=== PATIENT | male | born 1980 | race Caucasian/White ===

== ENCOUNTER 2024-03-05 15:27 | Emergency (ER) | payer BC, SELFPAY ==
[2024-03-05] VITALS (22 sets, daily range): BP systolic 132–156; BP diastolic 79–95; PULSE 68–92; RESP 16–20; TEMP 36.1; O2SAT 91–97; BMI 29.2
--- NOTE | 2024-03-05 16:04 | ED_ITS ---
HPI - Alcohol General Time Seen by Provider: 16:04 Date Seen: 03/05/24 Chief Complaint: Alcohol/Intoxication Stated Complaint: Severe tremors Time Seen by Provider: 03/05/24 16:04 Source: patient and RN notes reviewed Mode of arrival: ambulatory Limitations: no limitations History of Present Illness HPI narrative: Solis is a very pleasant 43-year-old gentleman who notes heavy drinking over the last 10 years who comes to the emergency room with tremors and seeking help. Patient originally went to the clinic and this was sent to the ER. He notes the onset of tremors today and really denies tremors in his past. He states that he was so tremulous he could not lift a piece of paper this morning. He has been drinking heavily daily. He describes his day is having a beer on the way to work, 2 beers at lunch and then drinking heavily after work until about 2200 hours. He is usually drinking vodka in the evening hours. He notes that in the past if he would stop drinking he would feel like he had a hangover for a few days. He notes that he really wants to get better and seems to be receptive to treatment. He states that he told the triage nurse that he does not think outpatient will work for him. He states that he has really good benefits to the [employer] with his but he has never used them. He tells me that he wants to only get better and does not want for his on healthy living to catch up with him. Solis notes occasional alcohol use when he is drinking heavily. He has off used cocaine occasionally in the past year but none recently. He denies any chest pain when he used in the past. He has not been vomiting nor has he nauseated. He has not had any abdominal pain. Notes that he did have some diarrhea early this morning. Patient denies fever chills, respiratory symptoms. Related Data Home Medications Medication Instructions Recorded Confirmed No Known Home Medications 09/01/22 03/05/24 Allergies Allergy/AdvReac Type Severity Reaction Status Date / Time No Known Drug Allergies Allergy Verified 09/01/22 12:50 Review of Systems Status of ROS Reports: 10 or more systems reviewed and unremarkable except as noted in History and below Const Denies: fever, chills or fatigue Eyes Denies: change in vision ENMT Denies: throat pain, neck pain, throat swelling or difficulty swallowing Cardio Denies: chest pain, palpitations, swelling of feet/ankles, lightheadedness or shortness of breath with exertion Resp Denies: shortness of breath, cough or wheezing GI Denies: abdominal pain, nausea, vomiting or difficulty swallowing Musculo Denies: neck pain Integ/Breast Denies: rash Neuro Denies: headache Endo Denies: fatigue Allergy/Immuno Denies: throat swelling or wheezing [facility] Social History Smoking Status: Current some day smoker How often do you have a drink containing alcohol: 4 or more times a week How many standard drinks containing alcohol do you have on a typical day: 7 to 9 How often do you have six or more drinks on one occasion: Daily or almost daily AUDIT-C Alcohol total score: 11 Non-prescribed substance use: former substance user and crack/cocaine Little interest or pleasure in doing things: several days Feeling down, depressed, or hopeless: not at all Exam Narrative: Exam Narrative: Patient is alert and oriented. He is tremulous over most of his body. Definitely in upper extremities. Even in his talking he has some tremulous of his jaw. He makes good eye contact. No scleral icterus. Face symmetrical. Heart with regular rate and rhythm and lungs are clear bilaterally. Abdomen is soft and nontender. Lower extremities without edema. He can move all of his extremities. Tremors increased with intention. Const: Vital Signs, click to edit/add: Vital Signs - 24 hr 03/05/24 15:32 03/05/24 16:55 03/05/24 16:56 Temperature 97 F L Pulse Rate 81 78 Pulse Rate [Pulse Oximeter] 92 Respiratory Rate 20 Blood Pressure 140/95 H Blood Pressure [Ri ght Upper Arm] 156/79 H Pulse Oximetry 95 93 96 Oxygen Delivery Me thod Room Air 03/05/24 17:00 03/05/24 17:01 03/05/24 17:15 Temperature Pulse Rate 71 72 78 Pulse Rate [Pulse Oximeter] Respiratory Rate Blood Pressure 145/87 H Blood Pressure [Ri ght Upper Arm] Pulse Oximetry 95 95 97 Oxygen Delivery Me thod 03/05/24 17:30 03/05/24 17:32 03/05/24 17:45 Temperature Pulse Rate 73 89 68 Pulse Rate [Pulse Oximeter] Respiratory Rate Blood Pressure 141/95 H Blood Pressure [Ri ght Upper Arm] Pulse Oximetry 96 97 91 Oxygen Delivery Me thod 03/05/24 18:00 03/05/24 18:02 03/05/24 18:03 Temperature Pulse Rate 82 73 71 Pulse Rate [Pulse Oximeter] Respiratory Rate Blood Pressure 146/91 H Blood Pressure [Ri ght Upper Arm] Pulse Oximetry 96 94 95 Oxygen Delivery Me thod 03/05/24 18:15 03/05/24 18:30 03/05/24 18:31 Temperature Pulse Rate 89 68 69 Pulse Rate [Pulse Oximeter] Respiratory Rate Blood Pressure 146/86 H Blood Pressure [Ri ght Upper Arm] Pulse Oximetry 96 95 95 Oxygen Delivery Me thod 03/05/24 18:45 03/05/24 19:00 03/05/24 19:02 Temperature Pulse Rate 73 71 68 Pulse Rate [Pulse Oximeter] Respiratory Rate Blood Pressure 144/86 H Blood Pressure [Ri ght Upper Arm] Pulse Oximetry 95 93 93 Oxygen Delivery Me thod 03/05/24 19:03 03/05/24 19:15 Temperature Pulse Rate 68 68 Pulse Rate [Pulse Oximeter] Respiratory Rate Blood Pressure Blood Pressure [Ri ght Upper Arm] Pulse Oximetry 92 95 Oxygen Delivery Me thod Documenting provider has reviewed patient's vital signs: yes Course Course ED Course: Differential diagnosis includes but is not limited to alcohol withdrawal, electrolyte or vitamin deficiency, thyroid toxicity, sympathomimetic drugs, anxiety. Will place IV, give 1 L of normal saline, 2 mg of IV Ativan, folic acid, multivitamin, thiamin. Will check CBC, comprehensive panel, direct bilirubin, ETOH, salicylates, acetaminophen, drug tox and urine. I did speak to patient about the need for detox and then inpatient treatment. He seemed receptive to that plan so once we have the electrolytes back will contact our DEC assessors. Reevaluation(s) Reevaluation #1: Patient unable to tolerate the p.o. folic acid multivitamin thigh min. Began vomiting quite strongly. He even blood come from his nose because the vomiting was so violent. Have given him Zofran 4 mg IV has well as banana bag. Alcohol level is 0. He does have 4+ urinary ketones. Tremulousness much improved after Ativan 2 mg. Did not appear sleepy and is now completing his mental health assessment. Reevaluation #2: Patient noted to be quite improved after Ativan. Patient did complete his mental health assessment. They are suggesting that psychiatry appointment on Tuesday followed by a phone call to set up a chemical assessment is appropriate. I do give patient option of detox with inpatient treatment assessment or what the [employer] counselor had offered. He is choosing the latter. I did discuss with patient mildly elevated liver function tests, 4+ urinary ketones. Have encouraged some eating but he is not hungry but is receptive to Gatorade. Plan on discharge home. Vital Signs Vital signs: Initial Vital Signs Temperature 97 F L 03/05/24 15:32 Temperature Source Temporal Artery Scan 03/05/24 15:32 Pulse Rate 92 03/05/24 15:32 Respiratory Rate 20 03/05/24 15:32 Blood Pressure 156/79 H 03/05/24 15:32 Blood Pressure Mean 104 03/05/24 15:32 Blood Pressure Position Sitting 03/05/24 15:32 Pulse Oximetry 95 03/05/24 15:32 Oxygen Delivery Method Room Air 03/05/24 15:32 Vital Signs Temperature 97 F L 03/05/24 15:32 Pulse Rate 92 03/05/24 15:32 Respiratory Rate 20 03/05/24 15:32 Blood Pressure 156/79 H 03/05/24 15:32 Pulse Oximetry 95 03/05/24 15:32 Oxygen Delivery Method Room Air 03/05/24 15:32 Temperature 97 F L 03/05/24 15:32 Pulse Rate 68 03/05/24 19:15 Respiratory Rate 20 03/05/24 15:32 Blood Pressure 144/86 H 03/05/24 19:02 Pulse Oximetry 95 03/05/24 19:15 Oxygen Delivery Method Room Air 03/05/24 15:32 Medications Administered Medications: Generic Name Dose Route Start Last Admin Trade Name Freq PRN Reason Stop Dose Admin Folic Acid 1 mg/ Multivitamins 1,011.2 mls @ 252.8 mls/hr 03/05/24 17:15 03/05/24 18:09 10 ml/ Thiamine HCl 100 mg/ IV 03/05/24 21:14 Infused Sodium Chloride .Q4H NICK Infusion Oral Electrolytes 1,014 ml 03/05/24 18:23 03/05/24 18:25 Electrolytes/Dextrose Oral Brittney 1,000 Ml PO 1,014 ml ONCE PRN Administration Discontinued Medications Generic Name Dose Route Start Last Admin Trade Name Camacho PRN Reason Stop Dose Admin Folic Acid 1 mg 03/05/24 16:30 03/05/24 16:56 Folic Acid 1 Mg Tablet PO 03/05/24 16:31 Not Given ONCE ONE Sodium Chloride 1,000 mls @ 1,000 mls/hr 03/05/24 16:18 03/05/24 17:27 0.9 % Sodium Chloride 1000 Ml IV 03/05/24 17:17 Infused .Q1H NICK Infusion Magnesium Sulfate 2 gm in 50 mls @ 25 mls/hr 03/05/24 17:30 03/05/24 18:09 Magnesium Iv IVPB 03/05/24 19:29 25 mls/hr ONCE ONE Administration Lorazepam 2 mg 03/05/24 16:18 03/05/24 16:50 Lorazepam 2 Mg/Ml Inj IVP 03/05/24 16:19 2 mg ONCE ONE Administration Multivitamins/Minerals 1 tab 03/05/24 16:30 03/05/24 16:55 Multivitamin/Minerals 1 Tablet PO 03/05/24 16:31 Not Given ONCE ONE Ondansetron HCl 4 mg 03/05/24 17:04 03/05/24 16:45 Ondansetron 2 Mg/Ml Inj IVP 03/05/24 17:05 4 mg ONCE ONE Administration Thiamine HCl 100 mg 03/05/24 16:30 03/05/24 16:55 Thiamine 100 Mg Tablet PO 03/05/24 16:31 Not Given ONCE ONE MDM - Alcohol MDM Narrative Medical decision making narrative: 1. Alcohol withdrawal-patient notes longstanding history of health heavy alcohol use over the past 10 years with needs for morning and noontime alcohol prior to drinking heavy during the evening. Patient noted to be very tremulous upon his arrival. CIWA 10. Laboratory values noted mildly elevated liver function tests, normal bilirubin, low vitamin-D, relatively low magnesium and ketone urea at 4+. Patient given 1 L of normal saline, banana bag when he was intolerant of the p.o. multivitamin, thiamine and folate and now is drinking Gatorade. He also received 2 g of IV magnesium. Underwent DEC assessment with follow-up plan to include seeing Psychiatry on TuesdayMarch 07 and in the for chemical assessment for treatment. Patient received 2 mg of IV Ativan and he is much improved at this time. Patient denies past history of seizures or significant withdrawal. Patient initially receptive to detox followed by inpatient treatment but now wishes to go home for outpatient follow-up. Will provide patient with Ativan 1 mg, 1-2 tabs p.o. q.6 8 hours p.r.n. withdrawal. 10. Via instant meds with no refill. He will need to follow up with his primary for further medications which I do suspect he will need. No suspicions of suicidal or homicidal ideation today. 2. Disposition-patient will be discharged home. He should return to the emergency room for further or worsening symptoms. Otherwise he is advised to follow his outpatient instructions from our mental health middle [employer] counselor. Of course he is advised to abstain from alcohol. Lab Data Attestation: I reviewed the patient's lab results. Labs: Lab Results 03/05/24 Range/Units 16:45 WBC 6.51 (4.50-11.00) K/uL RBC 5.24 (4.30-5.90) m/uL Hgb 17.1 (13.5-17.5) gm/dL Hct 49.5 (37.0-53.0) % MCV 95 (80-100) fL MCH 33 (26-34) pg MCHC 35 (32-36) gm/dL RDW Coeff of Tavares 11.7 (11.5-15.5) % Plt Count 165 (140-440) K/uL Neut % (Auto) 71.7 (42.0-72.0) % Lymph % (Auto) 17.8 L (20-44) % [place] % (Auto) 9.1 (0.0-11.0) % Eos % (Auto) 0.9 (0.0-7.0) % Baso % (Auto) 0.5 (0.0-3.0) % Neut # (Auto) 4.70 (1.7-7.0) K/uL Lymph # (Auto) 1.20 (0.90-2.90) K/uL [place] # (Auto) 0.60 (0.00-0.90) K/UL Eos # (Auto) 0.10 (0.00-0.50) K/uL Baso # (Auto) 0.00 (0.00-0.30) K/uL Abs Immat Gran (auto) 0.00 (0.00-0.30) K/uL Imm/Tot Granulo (auto) 0.0 % Sodium 139 (135-149) mmol/L Potassium 3.9 (3.6-5.1) mmol/L Chloride 105 (96-114) mmol/L Carbon Dioxide 24 (20-32) mmol/L Anion Gap 10 (7-15) mEq/L BUN 8 (5-24) mg/dL Creatinine 0.7 (0.5-1.5) mg/dL Estimated Creat Clear 167.06 Estimated GFR 117 ml/min Glucose 100 (60-115) mg/dL Calcium 9.9 (8.4-10.6) mg/dL Magnesium 1.8 (1.5-2.6) mg/dL Total Bilirubin 1.3 (0.1-1.5) mg/dL Direct Bilirubin 0.3 (0.0-0.5) mg/dL AST 122 H (12-35) U/L ALT 123 H (4-50) U/L Alkaline Phosphatase 85 (40-150) U/L Total Protein 8.8 H (6.0-8.3) g/dL Albumin 5.3 H (3.3-5.0) g/dL 25-OH Vitamin D Total 22 L (30-80) ng/mL TSH 1.450 (0.270-4.200) uIU/mL Urine Color [place] A (Yellow) Urine Appearance Clear (Clear) Urine pH 7.0 (5.0-8.5) Ur Specific [place] >= 1.030 (1.000-1.030) Urine Protein 3+ A (Negative) Urine Glucose (UA) Negative (Negative) Urine Ketones 4+ A (Negative) Urine Blood Trace-intact A (Negative) Urine Nitrite Negative (Negative) Urine Bilirubin Negative (Negative) Urine Urobilinogen 1.0 (0.2-1.0) Ur Leukocyte Esterase Negative (Negative) Urine RBC 0-2 (0-2) Urine WBC 0-2 (0-5) Ur Squamous Epith Cells Few (None-Few) Urine Bacteria None (None) Salicylates < 1.0 L (1.0-10) mg/dL Urine Opiates Screen Negative (Negative) Ur Oxycodone Screen Negative (Negative) Urine Methadone Screen Negative (Negative) Acetaminophen < 10.0 L (10.0-30.0) ug/mL Ur Barbiturates Screen Negative (Negative) U Tricyclic Antidepress Negative (Negative) Ur Phencyclidine Scrn Negative (Negative) Ur Amphetamines Screen Negative (Negative) U Methamphetamines Scrn Negative (Negative) U Benzodiazepines Scrn Negative (Negative) Urine Cocaine Screen Negative (Negative) U Marijuana (THC) Screen Negative (Negative) Ur Drug Screen Comment See Note Ethyl Alcohol < 0.01 L (0.01-0.03) % Discharge Plan Discharge Clinical Impression: Ketonuria Alcohol withdrawal syndrome Qualifiers: Complication of substance-induced condition: uncomplicated Qualified Code(s): F10.930 - Alcohol use, unspecified with withdrawal, uncomplicated Patient Disposition: Home, Self-Care Condition: Improved Additional Instructions: Keep well hydrated. And only with water but also with other electrolyte containing compounds. You received vitamins today through the IV. I recommend you continue to take a chewable or liquid vitamin such as Children's Flintstones daily. Your vitamin-D level is also low and thus you will need to take vitamin-D daily. Most likely liquid form. Follow the plan put forward by our mental health assessors. You have an appointment with Psychiatry on Tuesday. You should then expect a phone call t o be set up for chemical assessment. Ativan is the medication we used today to help with your shakiness. Take 1-2 tablets every 6 hours as needed. Do not take if you do not needed. Please follow-up with your primary MD if you are in need of further medication. Return to the emergency room as needed. Prescriptions: No Action No Known Home Medications Follow Up/Referrals: Arjun Serrano MD [Staff Physician] - Stand Alone Forms: [employer] Info Instructions
[2024-03-05] MEDS: ONDANSETRON 2 MG/ML inj 4 MG IVP (16:45)
[2024-03-05] MEDS: 0.9 % SODIUM CHLORIDE 1000 ml 1,000 ML IV (16:45)
[2024-03-05] MEDS: LORazepam 2 MG/ML inj IVP (16:50)
[2024-03-05 16:55] LABS: Appearance Urine Clear (Clear); Bilirubin Urine Negative (Negative); Blood Urine Trace-intact (Negative); Color Urine Amber (Yellow); Glucose Urine Negative (Negative); Ketones Urine 4+ (Negative); Leukocyte Esterase Urine Negative (Negative); Nitrite Urine Negative (Negative); Protein Urine 3+ (Negative); Specific Gravity Urine >= 1.030 (1.000-1.030)
[2024-03-05 16:59] LABS: Hematocrit 49.5 % (37.0-53.0); Hemoglobin* 17.1 gm/dL (13.5-17.5); Mean Corpuscular HGB Conc 35 gm/dL (32-36); Mean Corpuscular Hemoglobin 33 pg (26-34); RDW Coefficient of Variation % 11.7 % (11.5-15.5)
[2024-03-05 17:13] LABS: Albumin* 5.3 g/dL (3.3-5.0); Chloride* 105 mmol/L (96-114); Sodium* 139 mmol/L (135-149)
[2024-03-05 17:14] LABS: Potassium* 3.9 mmol/L (3.6-5.1)
[2024-03-05 17:15] LABS: Creatinine* 0.7 mg/dL (0.5-1.5); Est. Creatinine Clearance* 167.06; Estimated Glomerular Filt Rate 117 ml/min
[2024-03-05 17:16] LABS: Alanine Aminotransferase* 123 U/L (4-50); Alkaline Phosphatase* 85 U/L (40-150); Anion Gap 10 mEq/L (7-15); Aspartate Amino Transferase* 122 U/L (12-35); Bilirubin Direct* 0.3 mg/dL (0.0-0.5); Bilirubin Total* 1.3 mg/dL (0.1-1.5); Blood Urea Nitrogen* 8 mg/dL (5-24); Calcium* 9.9 mg/dL (8.4-10.6); Carbon Dioxide* 24 mmol/L (20-32); Glucose* 100 mg/dL (60-115); Magnesium* 1.8 mg/dL (1.5-2.6); Total Protein* 8.8 g/dL (6.0-8.3)
[2024-03-05 17:18] LABS: Acetaminophen* < 10.0 ug/mL (10.0-30.0); Ethanol* < 0.01 % (0.01-0.03); Salicylate* < 1.0 mg/dL (1.0-10)
[2024-03-05 17:30] LABS: RBC Urine 0-2 (0-2); Squamous Epithelial Cell Urine Few (None-Few); WBC Urine 0-2 (0-5)
[2024-03-05 17:46] LABS: Slide Review Reflex No
[2024-03-05 17:49] LABS: Red Blood Count 5.24 m/uL (4.30-5.90); White Blood Count* 6.51 K/uL (4.50-11.00)
[2024-03-05 17:50] LABS: Basophils Percent Auto 0.5 % (0.0-3.0); Eosinophils Percent Auto 0.9 % (0.0-7.0); Lymphocytes Percent Auto 17.8 % (20-44); Mean Corpuscular Volume 95 fL (80-100); Monocytes Percent Auto 9.1 % (0.0-11.0); Neutrophils Percent Auto 71.7 % (42.0-72.0); Platelet Count* 165 K/uL (140-440)
[2024-03-05] MEDS: MAGNESIUM IV 2 GM/50 ML PIGGYBACK IVPB (18:09)
[2024-03-05] MEDS: ELECTROLYTES/DEXTROSE ORAL SOL 1,000 ML 1014 ML PO (18:25)
[2024-03-05 18:56] LABS: Vitamin D 25 Hydroxy* 22 ng/mL (30-80)
[2024-03-05 19:24] LABS: Amphetamine Screen Urine Negative (Negative); Barbiturate Screen Urine Negative (Negative); Benzodiazepines Screen Urine Negative (Negative); Cannabinoid Screen Urine Negative (Negative); Cocaine Screen Urine Negative (Negative); Methadone Screen Urine Negative (Negative); Methamphetamines Screen Urine Negative (Negative); Opiate Screen Urine Negative (Negative); Oxycodone Screen Urine Negative (Negative); Phencyclidine Screen Urine Negative (Negative); Tricyclic Antidepressant Urine Negative (Negative)
== END 2024-03-05 19:43 | disposition home or self-care (01) ==
PROVIDERS: Emergency Provider Family Medicine
DX: F10.930 Alcohol use, unspecified with withdrawal, uncomplicated (principal); R82.4 Acetonuria
CPT/HCPCS: 36415; 80053; 80143; 80179; 80306; 81001; 82077; 82248; 82306; 83735; 84443; 85025; 96365; 96375; 99284; J2060; J2405; J3411; J3475; J7030